=== PATIENT | female | born 2005 | race Two or more races ===

== ENCOUNTER 2023-09-04 15:50 | Emergency (ER) | payer MEDICAID, OTHER ==
[~2023-09-04] VITALS: Ht 157.5 cm; Wt 59.3 kg
[2023-09-04 16:38] VITALS: BP 132/73; PULSE 96; RESP 16; TEMP 99.6; O2SAT 98
[2023-09-04] MEDS: IBUPROFEN 600 MG TAB PO ONE (16:52)
[2023-09-04] MEDS ORDERED: IBUP-1454 PO (16:56)
== END 2023-09-04 17:01 | disposition home or self-care (01) ==
LOC: ER 15:58
DX: S82.831A Other fracture of upper and lower end of right fibula, initial encounter for closed fracture (principal); W18.39XA Other fall on same level, initial encounter; Y93.51 Activity, roller skating (inline) and skateboarding; Y92.89 Other specified places as the place of occurrence of the external cause; Y99.8 Other external cause status
CPT/HCPCS: 29515; 73610

== ENCOUNTER 2023-10-08 09:01 | Emergency (ER) | payer MEDICAID ==
[~2023-10-08] VITALS: Ht 160 cm; Wt 61.8 kg
[~2023-10-08 09:01] MED LIST: IBUP-1454 PO
[2023-10-08 09:49] VITALS: BP 142/78; PULSE 92; RESP 18; TEMP 98.4; O2SAT 100
== END 2023-10-08 10:19 | disposition home or self-care (01) ==
LOC: ER 09:01
DX: M25.571 Pain in right ankle and joints of right foot (principal); Z98.890 Other specified postprocedural states; Z79.899 Other long term (current) drug therapy; W01.0XXA Fall on same level from slipping, tripping and stumbling without subsequent striking against object, initial encounter; Y93.89 Activity, other specified; Y92.89 Other specified places as the place of occurrence of the external cause; Y99.8 Other external cause status
CPT/HCPCS: 73610

== ENCOUNTER 2023-10-10 20:21 | Emergency (ER) | payer MEDICAID ==
[~2023-10-10] VITALS: Ht 160 cm; Wt 63.0 kg
[2023-10-10 20:47] LABS: Basophils # (auto) 0 10 ^3/uL (0-0.2); Eosinophils # (auto) 0.1 10 ^3/uL (0-0.8); Hemoglobin 12.1 g/dL (12.2-16.2); Lymphocytes # (auto) 2.2 10 ^3/uL (0.4-5.4); Neutrophils # (auto) 3.1 10 ^3/uL (1.6-8.6); Nucleated Red Blood Cells % 0.1 %; Red Cell Distribution Width 17.2 % (11.8-14.3); White Blood Cell 5.9 10^3/uL (4.4-10.8)
[2023-10-10 20:48] LABS: Basophils % (auto) 0.7 % (0.0-2.0); Lymphocytes % (auto) 37.3 % (10.0-50.0); Mean Corpuscular Hemoglobin 24.7 pg (28.0-32.0); Mean Corpuscular Hgb Conc. 32.8 g/dL (32.0-36.0); Mean Corpuscular Volume 75.5 fL (80.0-100.0); Monocytes # (auto) 0.4 10 ^3/uL (0-1.3); Monocytes % (auto) 7.3 % (0.0-12.0); Neutrophils % (auto) 52.7 % (37.0-80.0); Platelet Count (auto) 242 10^3/uL (140-450); Red Blood Cells 4.89 10^6/uL (4.0-5.20)
[2023-10-10 21:00] LABS: Alanine Aminotransferase 16 U/L (7-40); Albumin 4.3 g/dL (3.2-4.8); Alkaline Phosphatase 74 U/L (46-116); Anion Gap 7 (5-15); Aspartate Aminotransferase 15 U/L (13-40); BUN/Creatinine Ratio 10.8 (10.0-20.0); Bilirubin, Total 0.3 mg/dL (0.2-1.0); Blood Urea Nitrogen 8 mg/dL (9-23); Carbon Dioxide 22 mmol/L (20-30); Chloride 104 mmol/L (98-107); Glucose 138 mg/dL (74-106); Potassium 2.8 mmol/L (3.5-5.1); Sodium 133 mmol/L (136-145)
[2023-10-10 21:01] LABS: Total Protein 7.2 g/dL (5.7-8.2)
[2023-10-11 02:20] VITALS: BP 125/84; PULSE 76; RESP 18; TEMP 98.2; O2SAT 98
[2023-10-11] MEDS: POTASSIUM CHL 20 Meq TABLET PO ONE (02:22)
[2023-10-11 03:24] LABS: Urine Bacteria None Seen /hpf (None Seen)
[2023-10-11 03:37] LABS: Urine Amorphous Crystal FEW /hpf (None Seen); Urine Blood Negative /uL (Negative); Urine Clarity Clear (Clear); Urine Color Light-Yellow (Yellow); Urine Protein, UAD Negative (Negative); Urine Specific Gravity 1.014 (1.001-1.035); Urine Urobilinogen Normal (Negative); Urine WBC 1 /hpf (0 - 5)
[2023-10-11 03:50] LABS: Amphetamine Screen, Urine Neg (NEGATIVE); Barbiturate Scree,Urine Neg (NEGATIVE); Benzodiazephine Screen, Urine Neg (NEGATIVE); Cannabinoid Screen, Urine Neg (NEGATIVE); Cocaine Screen, Urine Neg (NEGATIVE); Opiate Scree,Urine Neg (NEGATIVE); Phencyclidine Screen, Urine Neg (NEGATIVE)
== END 2023-10-11 06:31 | disposition home or self-care (01) ==
LOC: ER 20:21
DX: S82.491A Other fracture of shaft of right fibula, initial encounter for closed fracture (principal); R10.2 Pelvic and perineal pain; E87.6 Hypokalemia; R00.2 Palpitations; F15.90 Other stimulant use, unspecified, uncomplicated; Z98.890 Other specified postprocedural states; Z79.899 Other long term (current) drug therapy; X58.XXXA Exposure to other specified factors, initial encounter; Y93.89 Activity, other specified; Y92.89 Other specified places as the place of occurrence of the external cause; Y99.8 Other external cause status
CPT/HCPCS: 36415; 71045; 80053; 80307; 81001; 84484; 84702; 85025; 93005